=== PATIENT | female | born 1985 | race Caucasian/White ===

== ENCOUNTER 2018-02-12 23:35 | Emergency (ER) | payer OTHER ==
[2018-02-13] MEDS: LIDOCAINE 1% (MDV) 10 ML INJ INJ (00:21)
[2018-02-13] MEDS: LIDOCAINE 1% (MPF) 5 ML VIAL INJ (00:21)
== END 2018-02-13 01:45 | disposition home or self-care (01) ==
LOC: E/R 23:35
DX: S01.81XA Laceration without foreign body of other part of head, initial encounter (principal); W01.0XXA Fall on same level from slipping, tripping and stumbling without subsequent striking against object, initial encounter; Y92.002 Bathroom of unspecified non-institutional (private) residence as the place of occurrence of the external cause
CPT/HCPCS: 12013; 99282-25